=== PATIENT | female | born 1990 | race Caucasian/White ===

== ENCOUNTER 2021-11-18 06:49 | Emergency (ER) | payer OTHER ==
[~2021-11-18] VITALS: Ht 162.6 cm; Wt 72.6 kg
--- NOTE | 2021-11-18 06:49 | NUR ---
PT BIB [facility], PREBOOK. TAKEN TO CHAIR
[2021-11-18 06:51] VITALS: BP 117/65
--- NOTE | 2021-11-18 07:03 | NUR ---
[facility]
[2021-11-18 07:18] VITALS: BP 117/65
--- NOTE | 2021-11-18 07:19 | NUR ---
PATIENT BIB [facility] [employer]. PATIENT EXAMINED BY DR. PORTER. PATIENT MEDICALLY CLEARED AND RELEASED IN CUSTODY IN STABLE CONDITION. ORIGINAL PRE-BOOK FORM GIVEN TO OFFICER CHRISTOPHER.
--- NOTE | 2021-11-18 07:19 | NUR ---
Patient discharged with v/s stable. Written and verbal after care instructions given and explained. Patient verbalized understanding. Police with in custody. All questions addressed prior to discharge. Advised to follow up with PMD.
== END 2021-11-18 07:18 | disposition home or self-care (01) ==
LOC: MED 06:49
DX: Z00.00 Encounter for general adult medical examination without abnormal findings (principal); Z02.89 Encounter for other administrative examinations; V89.2XXA Person injured in unspecified motor-vehicle accident, traffic, initial encounter; Y93.89 Activity, other specified; Y92.89 Other specified places as the place of occurrence of the external cause; Y99.8 Other external cause status
CPT/HCPCS: 99283